=== PATIENT | female | born 2000 | race Hispanic/Latino ===

== ENCOUNTER 2021-04-03 06:56 | Inpatient (IN) | payer OTHER ==
[~2021-04-03] VITALS: Ht 162.6 cm; Wt 93.8 kg
[2021-04-03] VITALS (7 sets, daily range): BP systolic 113–143; BP diastolic 55–74
[2021-04-03] MEDS ORDERED: PRENTAB9 PO (09:44)
[2021-04-03] MEDS ORDERED: TRANEXAMIC ACID INJection 1,000 MG in NS 100 ML IV PRN (10:35)
[2021-04-03] MEDS ORDERED: CARBOPROST TROMETHAMINE 250 MCG/ML AMP IM PRN (10:35)
[2021-04-03] MEDS ORDERED: LIDOCAINE 1% MDV 20ML VIAL INFIL PRN (10:35)
[2021-04-03] MEDS ORDERED: OXYTOCIN DRIP 30 UNITS in IV 1 EA IV PRN (10:35)
[2021-04-03] MEDS ORDERED: METHYLERGONOVINE MALEATE 0.2 MG/ML VIAL (J2210) IM PRN (10:35)
[2021-04-03] MEDS ORDERED: LR 1,000 ML IV SCH (10:35)
[2021-04-03 13:20] LABS: HEMOGLOBIN 11.5 g/dl (12.0-15.5); MEAN CORPUSCULAR HEMOGLOBIN 29.1 pg (27.0-33.0); MEAN CORPUSCULAR HGB CONC 32.9 g/dl (32.0-36.5); MEAN CORPUSCULAR VOLUME 88.6 fl (80.0-96.0); PLATELET COUNT, AUTOMATED 148 10^3/uL (150-450); RED BLOOD COUNT 3.95 10^6/uL (4.00-5.40)
--- NOTE | 2021-04-03 16:21 | HPEPDOC ---
Obstetrical History & Physical General Date of Admission Apr 03, 2021 at 10:34 History of Present Illness Pt is a 21yo at 40w4d by LMP c/w 10wk US with RAJENDRA Mar presents to L&D with complaint of painful contractions that began last night and have been increasing in intensity and frequency. She also reports loss of her mucus plug and leaking of 'stringy' fluid. She otherwise denies vaginal bleeding or discharge. +GFM. Chief Complaint: Contractions, term Information Provided By: Patient Care Care: Good Care Dating Final EDC: Mar 30, 2021 Final EDC by: LMP, 1st trimester (US) Antepartum Course Diagnos(e)s Fibroid uterus - 4cm, anterior fibroid Migraines Hx of COVID in Oct of this Past Medical History Past Obstetrical History : Past Obstetrical History: Multigravida Gestation: 6 (SAB) DRILLER PORTABLE History: No pertinent history Past Medical History Medical History migraines Surgical History: Denies/None Social History Marital Status: Family situation: Spouse/partner home * Smoker: non-smoker Alcohol: Denies Drugs: denies Imunizations Tdap status: current (01/19/21) Allergies Coded Allergies: No Known Allergies (Unverified , 04/03/21) Medications Scheduled No.137/Iron/Folic Acd ( Vitamin Tablet) 1 Each Tablet, 1 TAB PO DAILY Physical Examination Physical Examination GENERAL: Alert and oriented times three. BREAST: . ABDOMEN: Gravid and non-tender to touch. FETUS: Is vertex (VTX) by sterile vaginal examination (SVE) HEART RATE: Regular rate LUNGS: Normal work of breathing EXTREMITIES: No edema. Speculum exam: small amount of mucus/discharge. Neg for pooling, nitrizine or ferning TAUS: cephalic, normal fluid Vital Signs/I&O BP 113/74 HR 100 afebrile Laboratory Data 24H LABS Laboratory Tests 2 04/03/21 10:37: Serology Scanned Report Hepatitis B Testing 04/03/21 12:50: Nucleated Red Blood Cells % (auto) 0.0, Syphilis Serology NONREACTIVE CBC/BMP Laboratory Tests 04/03/21 12:50 Pertinent Laboratoy Data Blood Type: O+ RBC Antibody Screen: Negative HIV: Negative Hepatitis B: Negative Rapid Plasma Reagin: Nonreactive Rubella: Immune Varicella: Immune Chlamydia/Gonorrhea: Negative Group B Streptococcus: Negative Glucose Tolerance Test: 87 Anatomy Ultrasound Placenta Location: Posterior Normal Anatomy: Yes Placenta Previa: No Vaginal Examination Dilation: 3 cm Effacement: 50% Station: -2 Cervical Consistency: Soft Presentation: Cephalic presentation Assessment Variability: Moderate (Cat 1 heart tracing ) Tocometer Frequency: regular (2-4 min ) Assessment/Plan Assessment 21yo at 40w4d with RAJENDRA 19 [place] in early labor. SVE changed from 3-4 in triage, patient painfully cynthia. Plan Admit and orient. Proofsheet Corrector and consent. Diet: regular Group B Streptococcus (GBS) [negative]. Labs and intravenous (IV) per unit protocol. Counseled on Pitocin and induction of labor (IOL). Anticipate normal spontaneous delivery (). C-S as appropriate. Labor and Delivery Counseling We will deliver your baby through the vagina with possible assistance of forceps or vacuum device if needed for maternal or indications. Forceps and vacuum are devices that can assist with vaginal delivery when normal pushing efforts cannot achieve delivery on their own or when delivery is needed in an emergency for baby's well-being. Medications may be required to induce or augment (help) your labor in order to achieve a vaginal delivery. An episiotomy may be required to help your baby to delivery vaginally. You may also require repair of any lacerations or tears of your vagina or vulva that are caused by delivery. In some cases, emergencies can occur that require an emergency section delivery so quickly that there may not be enough time to stop and complete consent forms for section. Understand that if this occurs, your providers will discuss the need for a section with you before they proceed with surgery. section is the delivery of your baby through an incision in your abdomen. In some situations, section may be safer to mom and baby than continuing labor and is only performed when clinically indicated. Risks of vaginal delivery include but are not limited to: Bleeding, infection, injury to the vagina, pelvic structures, injury to baby, damage to the uterus, reactions to anesthesia, uterine rupture, risk of hysterectomy for life threatening bleeding, or . Medications used to induce or augment labor may increase your risk for infection, uterine tachysystole, uterine rupture, heart rate abnormalities, need for emergency delivery or possible hysterectomy, and hemorrhage. Additional risks for use of forceps and vacuum include: increased risk of perineal and vaginal lacerations, risk of urinary or bowel incontinence, increased risk of injury to baby with bruising, scratches, hematomas on the head, or intracranial bleeding. CATRINA MASON M.D. Apr 03, 2021 16:21
[2021-04-03] MEDS ORDERED: OXYTOCIN DRIP 30 UNITS in IV 1 EA IV SCH (20:00)
[2021-04-04] VITALS (50 sets, daily range): BP systolic 94–166; BP diastolic 51–92
[2021-04-04] MEDS ORDERED: FENTANYL 2MCG/ML ROPIVACAINE 0.2% IN 0.9% NACL 100ML IVBAG As Ordered ONE (01:45)
[2021-04-04] MEDS ORDERED: diphenhydrAMINE 50MG/ML VIAL (J1200) IV PRN (03:00)
[2021-04-04] MEDS ORDERED: ePHEDrine SULFATE 25 MG/5 ML(5MG/ML) SYRINGE IV PRN (03:00)
[2021-04-04] MEDS ORDERED: LACTATED RINGER'S 1000 ML IV PRN (03:00)
[2021-04-04] MEDS ORDERED: EPIDURAL COMMENT XX SCH (03:00)
[2021-04-04] MEDS ORDERED: NALOXONE INJ 0.4MG/1ML VIAL (J2310 PER 1MG) IV PRN (03:00)
[2021-04-04] MEDS ORDERED: ONDANSETRON 4MG/2ML VIAL IV PRN (03:00)
[2021-04-04] MEDS ORDERED: REFRIGERATOR IV KEYS XX PRN (03:00)
[2021-04-04] MEDS ORDERED: EPIDURAL/PCA KEYS XX PRN (03:00)
[2021-04-04] MEDS ORDERED: FENTANYL/ROPIVACAINE/NACL BAG 100 ML EPIDURAL SCH (03:00)
--- NOTE | 2021-04-04 03:44 | IPNPDOC ---
Obstetrical Progress Note Date of Service Apr 04, 2021 Subjective To patient's room for assessment. Pt now comfortable with epidural. Denies any LOF, VB. +GFM. Feels very fatigued, otherwise without complaint. Objective Vital Signs Date Time Temp Pulse Resp B/P (MAP) Pulse Ox O2 Delivery O2 Flow Rate FiO2 04/04/21 02:23 90 18 137/62 (87) 04/04/21 00:00 99.0 Assessment Heart Rate (FHR): 150 Variability: Moderate Accelerations: Positive Decelerations: Late (occasional late decelerations, resolve with position changes) Heart Rate Tracing: Category II Tocometer Contractions: Yes Frequency: regular (2-3 min) Sterile Vaginal Examination Dilation: 5 cm Effacement (%): 90% Station: 0 Cervical Consistency: Soft Cervical Position: Anterior Assessment and Plan Group B Streptococcus: Negative Anticipate: Vaginal Delivery Additional Comments 21yo at 40w5d admitted in labor. Augmented with pitocin (currently at 6mU) and AROM with clear fluid at 0320. SVE now /-1. Intermittent Cat II tracing. Anticipate vaginal delivery. CATRINA MASON M.D. Apr 04, 2021 03:44
[2021-04-04] MEDS: LR 1,000 ML IV SCH ×2 (06:22→14:04)
[2021-04-04] MEDS ORDERED: OXYTOCIN INJ 10 UNITS/ML VIAL (J2590) As Ordered ONE (07:09)
[2021-04-04] MEDS ORDERED: IBUPROFEN 600MG TAB PO PRN (11:20)
[2021-04-04] MEDS ORDERED: ACETAMINOPHEN 500 MG TAB PO PRN (11:20)
[2021-04-04] MEDS ORDERED: ACETAMINOPHEN TAB 650MG DOSE (2X325MG) PO PRN (11:20)
[2021-04-04] MEDS ORDERED: MOM 30ML SUSPENSION UDC PO PRN (11:20)
[2021-04-04] MEDS ORDERED: DOCUSATE SODIUM 100MG CAPSULE PO PRN (11:20)
[2021-04-04] MEDS ORDERED: MEASLES,MUMPS,RUBELLA VACCINE INJ (MMR-II) (90707) SC SCH (11:20)
[2021-04-04] MEDS ORDERED: RHOGAM 300 MCG (1500 IU) INJ (J2790) IM SCH (11:20)
[2021-04-04] MEDS ORDERED: OXYTOCIN INJ 10 UNITS/ML VIAL (J2590) IV ONE (11:20)
[2021-04-04] MEDS ORDERED: METHYLERGONOVINE MALEATE 0.2 MG TAB PO PRN (11:20)
[2021-04-04] MEDS ORDERED: ANUSOL HC CREAM 30GM TOP PRN (11:20)
[2021-04-04] MEDS ORDERED: OXYTOCIN DRIP 30 UNITS in IV 1 EA IV SCH (11:20)
[2021-04-04] MEDS ORDERED: DIBUCAINE 1% OINTMENT 30GM TOP PRN (11:20)
[2021-04-04 11:32] LABS: CORD GAS ABE A -4.2; CORD GAS ABE V -2.2; CORD GAS HCO3 A 22.6 MEQ/L; CORD GAS HCO3 V 23.2 MEQ/L; CORD GAS O2 SAT V 41.4 %; CORD GAS PCO2 A 48.1 mmHg; CORD GAS PCO2 V 42.1 mmHg; CORD GAS PH A 7.29 UNITS; CORD GAS PH V 7.359 UNITS; CORD GAS PO2 V 18.3 mmHg; CORD GAS SBC A 19.4 MEQ/L; CORD GAS SBC V 21.4 MEQ/L; CORD GAS TCO2 A 24.1 MEQ/L; CORD GAS TCO2 V 24.5 MEQ/L
--- NOTE | 2021-04-04 12:42 | DN ---
DELIVERY NOTE DATE OF DELIVERY: 04/04/2021 TIME OF : GENDER: APGARS: LACERATIONS: This lady is a 21-year-old 2, admitted with contractions at 40 and 4 weeks of gestation. She had an epidural in place. Spontaneous vaginal delivery, female infant, 9 pounds 5 ounces, 4230 grams, scores of 9 and 9 at one and five minutes, respectively. Terminal meconium at delivery. Arterial and venous pH were performed but are not yet ready. Placenta delivered spontaneously thereafter, three vessels in the cord, membranes and tissues intact. The patient sustained a first-degree tear. It was oversewn in the usual fashion with 2-0 on [id number]. Anterior, posterior, and lateral persaud were complete. Sphincter was tight. No fistulas. On re-evaluation, the uterus was well contracted. In summary, we have a term gestation, delivered a live- female infant. Patient plans on breast-feeding. Medications were picked up at [place]. Patient and baby tolerated procedure well.
[2021-04-04] MEDS ORDERED: SLF 3 ML SYR IV PRN (12:50)
[2021-04-04] MEDS: PRENATAL VITAMINS CHEWABLE TABLET PO SCH (13:34)
[2021-04-04] MEDS: SLF 3 ML SYR IV SCH ×2 (14:04→20:08)
[2021-04-05 05:52] VITALS: BP 117/82
[2021-04-05] MEDS: SLF 3 ML SYR IV SCH ×3 (06:05→21:17)
[2021-04-05 06:42] LABS: HEMATOCRIT 29.4 % (36.0-47.0); HEMOGLOBIN 9.6 g/dl (12.0-15.5); MEAN CORPUSCULAR HEMOGLOBIN 29.5 pg (27.0-33.0); MEAN CORPUSCULAR HGB CONC 32.7 g/dl (32.0-36.5); MEAN CORPUSCULAR VOLUME 90.5 fl (80.0-96.0); PLATELET COUNT, AUTOMATED 117 10^3/uL (150-450); RED BLOOD COUNT 3.25 10^6/uL (4.00-5.40); WHITE BLOOD COUNT 15.1 10^3/uL (4.0-10.0)
[2021-04-05] MEDS: PRENATAL VITAMINS CHEWABLE TABLET PO SCH (08:12)
[2021-04-05 18:23] VITALS: BP 105/50
--- NOTE | 2021-04-05 23:14 | IPN ---
DAY #1 PROGRESS NOTE DATE: 04/05/2021 SUBJECTIVE: This lady is a 21-year-old 2, now para 1, who was admitted with contractions at 40 and 4 weeks of gestation, had a spontaneous vaginal delivery female infant 9 pounds 5 ounces (4230 grams), Apgars 9 and 9 in 1 and 5 minutes respectively. Terminal meconium at delivery. Arterial pH 7.29, base excess -4.2, venous pH 7.35, base excess -2.2. She has a large anterior wall fibroid which is visible since delivery. OBJECTIVE: This morning, blood pressure 117/82, respirations 16, pulse 82, temperature 97.6. The rest of the examination is unremarkable. Normocephalic, atraumatic. Neck full range of motion. Pupils equal and reactive to light. Distal pulses are symmetric. No evidence of DVT, PE or superficial phlebitis. Chest is clear bilaterally to the bases. No wheezes or rhonchi. No CVA tenderness. Abdomen is soft, four quadrant bowel sounds are noted. Uterus itself is two-below, with the fibroid it seems to be two-above. Perineum is healing. She has no rashes, lesions or pruritis. No arthralgia or myalgia. No complaint of chest pain. No complaint of cough, wheeze, shortness of breath or dyspnea on exertion. No nausea, vomiting, diarrhea or constipation. No urgency or frequency. LABORATORY DATA: Admitting hemoglobin 11.5, hematocrit 35.0, platelets 148,000. day #1 hemoglobin 9.6, hematocrit 29.4, platelets 117,000. IN SUMMARY: I have a term gestation delivered a live female infant. Plans are for her to pickup her meds at [place]. Patient will have a 6-week checkup at [facility], control will be discussed at that time. All questions were answered; 20 minute discussion. Patient is planning on .
[2021-04-06 06:00] VITALS: BP 98/56
[2021-04-06] MEDS: SLF 3 ML SYR IV SCH (06:00)
[2021-04-06] MEDS ORDERED: DOK1CAP7 PO (06:57)
[2021-04-06] MEDS ORDERED: IBUP-1022 PO (06:57)
[2021-04-06] MEDS ORDERED: PRENCHW PO (06:57)
[2021-04-06] MEDS: PRENATAL VITAMINS CHEWABLE TABLET PO SCH (08:36)
--- NOTE | 2021-04-06 09:06 | DSES ---
DISCHARGE SUMMARY DATE OF ADMISSION: 04/03/2021 DATE OF DISCHARGE: 04/06/2021 This lady is a 21-year-old, 2, now para 1, admitted with contractions at 40 and 4 weeks of gestation. Spontaneous vaginal delivery of a female infant, 9 pounds 5 ounces, 4320 grams, scores of 9 and 9 at 1 and 5 minutes, respectively. Arterial pH 7.29, base excess -4.2, venous pH 7.35, base excess -2.2. On her second day, we discussed phlebitis, cystitis, mastitis, endometritis, and cellulitis, diet, exercise, pain management, perineal, breast, and wound care. The rest of the examination is unremarkable. Her blood pressure was 98/56, respirations are 14, pulse is 78, temperature is 97.6. Her admitting hemoglobin was 11.5, hematocrit 35.0, and platelets 148. Discharged hemoglobin was 9.6, hematocrit 29.4, and platelets were 117. She has an anterior wall fibroid which is giving her some pain but she is coping with her ibuprofen. She is normocephalic, atraumatic. Neck full range of motion. Pupils equal and reactive to light. Distal pulses are symmetric. No evidence of deep venous thrombosis (DVT), pulmonary embolus (PE), or superficial phlebitis. Chest is clear bilaterally to the bases. No wheezes or rhonchi. No costovertebral angle (CVA) tenderness. Abdomen is soft, four quadrant bowel sounds are noted. Uterus is 2 below but with the fibroid it seems to be at the umbilicus. Uterus is well contracted. Lochia is minimal. No rashes, lesions, or pruritus. No arthralgia, myalgia, no complaint of joint pain. No complaint of cough, wheeze, shortness of breath, or dyspnea on exertion. No nausea, vomiting, diarrhea, or constipation. No urgency or frequency. In summary, we have a term gestation, delivered a live female infant. 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 All questions were answered. 25 minute discussion. Patient was discharged improved. Edited: virgilio 04/07/2021 [id number] [email or web address]
== END 2021-04-06 17:45 | disposition home or self-care (01) | DRG 807 ==
LOC: M LDO 06:56 → M LDI 10:34 → M OBS 04-04 13:10
PROVIDERS: ADMIT Obstetrics & Gynecology; ATTEND Obstetrics & Gynecology
PROC: 10E0XZZ Delivery of Products of Conception, External Approach (ICD-10-PCS; principal; 2021-04-04)
PROC: 0HQ9XZZ Repair Perineum Skin, External Approach (ICD-10-PCS; 2021-04-04)
PROC: 10907ZC Drainage of Amniotic Fluid, Therapeutic from Products of Conception, Via Natural or Artificial Opening (ICD-10-PCS; 2021-04-04)
DX: O48.0 Post-term pregnancy (principal); Z37.0 Single live birth; Z3A.40 40 weeks gestation of pregnancy; O70.0 First degree perineal laceration during delivery